=== PATIENT | male | born 1970 | race Caucasian/White ===

== ENCOUNTER 2016-08-21 14:49 | Emergency (ER) | payer OTHER ==
[~2016-08-21] VITALS: Wt 84.0 kg
[2016-08-21] MEDS ORDERED: KETOROLAC 15 MG INJ IV STA (15:48)
[2016-08-21 16:03] LABS: ADD SCAN DIFF NO
[2016-08-21 16:05] LABS: BASOPHIL # 0.1 10^3/ul (0.0-0.1); EOSINOPHILS # 0.9 10^3/ul (0.0-0.5); EOSINOPHILS % 12.6 % (0.0-7.0); HEMATOCRIT 46.9 % (42.0-52.0); HEMOGLOBIN 16.1 g/dl (14.0-18.0); LYMPHOCYTES # 2.3 10^3/ul (0.8-2.9); MEAN CORPUSCULAR HEMOGLOBIN 31.1 pg (29.0-33.0); MEAN CORPUSCULAR HGB CONC 34.3 g/dl (32.0-37.0); MEAN CORPUSCULAR VOLUME 90.5 fl (82.0-101.0); MEAN PLATELET VOLUME 10.1 fl (7.4-10.4); MONOCYTE # 0.6 10^3/ul (0.3-0.9); MONOCYTES % 8.2 % (0.0-11.0); NEUTROPHIL # 3.1 10^3/ul (1.6-7.5); NEUTROPHILS % 45.1 % (39.0-77.0); PLATELET COUNT 245 10^3/UL (140-415); RED BLOOD COUNT 5.18 10^6/ul (4.70-6.10); RED CELL DISTRIBUTION WIDTH 12.1 % (11.5-14.5); WHITE BLOOD COUNT 6.9 10^3/ul (4.8-10.8)
[2016-08-21 16:13] LABS: CHLORIDE 103 mmol/L (97-110); POTASSIUM 3.8 mmol/L (3.5-5.1); SODIUM 142 mmol/L (135-144)
[2016-08-21 16:16] LABS: ANION GAP 16 (8-16); CARBON DIOXIDE 27 mmol/L (21-31); CREATININE 0.96 mg/dl (0.61-1.24); INR 0.91; PROTIME 12.2 Sec (12.2-14.2)
[2016-08-21 16:17] LABS: BLOOD UREA NITROGEN 15 mg/dl (7-20); CALCIUM 9.7 mg/dl (8.4-10.2); GLUCOSE 102 mg/dl (70-220); PARTIAL THROMBOPLASTIN TIME 30.3 Sec (25.0-35.0)
--- NOTE | 2016-08-21 16:20 | RADRPT ---
PROCEDURE: XR Chest. CLINICAL INDICATION: Chest pain TECHNIQUE: Chest AP portable. COMPARISON: No comparison available. FINDINGS: The mediastinal structures are unremarkable. The heart is normal in size and configuration. The pu lmonary vascularity is normal. The lung ying are unremarkable. No consolidation is identified. The pleural spaces are unremarkable. The axial skeleton is unremarkable. IMPRESSION: No active intrathoracic disease. RPTAT: [facility] .Edmund Shook MD, MD Date Time Electronically viewed and signed by .Edmund Shook MD, MD on 08/21/2016 16:19 .B/
[2016-08-21 16:29] LABS: TROPONIN-I < 0.012 ng/ml (0.00-0.12)
[2016-08-21 16:43] VITALS: BP 148/98; PULSE 66; RESP 20; TEMP 98.6
--- NOTE | 2016-08-21 17:09 | ERD ---
ER Documentation Chief Complaint Date/Time DATE: 08/21/16 TIME: 17:07 Chief Complaint CHEST PAIN FOR 1 WEEK. SENT BY PMD, NO NAUSEA NO VOMITING. HPI This is a 46-year-old male who presents to the emergency room for evaluation of chest pain which is been present for 1 weeks duration. The patient localizes the chest pain to the left portion of her chest and describes as achy pain worse with movement of his left arm. The patient does state that he exercises and lifts weights daily. He denies any shortness of breath, diaphoresis, nausea or vomiting associated with this. He went to his primary care physician who sent him to the ER for further evaluation. ROS All systems reviewed and are negative except as per history of present illness. Medications Home Meds No Active Prescriptions or Reported Meds Allergies Allergies: Coded Allergies: No Known Allergy (Unverified , 08/21/16) PMhx/Soc Medical and Surgical Hx: pt denies Medical Hx, pt denies Surgical Hx Hx Alcohol Use: No Hx Substance Use: No Hx Tobacco Use: No Smoking Status: Never smoker Physical Exam Vitals Vital Signs Date Time Temp Pulse Resp B/P Pulse Ox O2 Delivery O2 Flow Rate FiO2 08/21/16 16:43 98.6 66 20 148/98 100 Room Air 08/21/16 14:51 98.6 72 20 159/85 98 Physical Exam INITIAL VITAL SIGNS: Reviewed by me GENERAL: The patient is well developed and appropriate for usual state of health in no apparent distress HEENT: Pupils equal, round, and reactive to light. EOMI. There is no scleral icterus. NECK: C-spine is soft and supple, there is no meningismus. There is no cervical lymphadenopathy. LUNGS: Clear to auscultation bilaterally. There are no rales, wheezes or rhonchi. HEART: Regular rate and rhythm, no murmurs, clicks, rubs or gallops. ABDOMEN: Soft, non-tender, non-distended. There are bowel sounds in all four quadrants. No rebound or guarding. EXTREMITIES: There is no peripheral cyanosis or edema. No focal swelling or erythema. NEUROLOGICAL: The patient moves all four extremities with 5/5 strength. Cranial nerves II - XII are intact. Normal gait. Alert and oriented SKIN: There is no apparent rash or petechiae. HEME/LYMPHATIC: There is no evidence of excessive bruising or lymphedema. PSYCHIATRIC: The patient does not appear anxious or depressed. Result Diagram: 08/21/16 1600 08/21/16 1600 Results 24 hrs Laboratory Tests Test 08/21/16 16:00 White Blood Count 6.910^3/ul Red Blood Count 5.1810^6/ul Hemoglobin 16.1g/dl Hematocrit 46.9% Mean Corpuscular Volume 90.5fl Mean Corpuscular Hemoglobin 31.1pg Mean Corpuscular Hemoglobin Concent 34.3g/dl Red Cell Distribution Width 12.1% Platelet Count 44587^3/UL Mean Platelet Volume 10.1fl Neutrophils % 45.1% Lymphocytes % 33.0% Monocytes % 8.2% Eosinophils % 12.6% Basophils % 1.0% Nucleated Red Blood Cells % 0.0/100WBC Neutrophils # 3.110^3/ul Lymphocytes # 2.310^3/ul Monocytes # 0.610^3/ul Eosinophils # 0.910^3/ul Basophils # 0.110^3/ul Nucleated Red Blood Cells # 0.010^3/ul Prothrombin Time 12.2Sec Prothrombin Time Ratio 1.0 INR International Normalized Ratio 0.91 Activated Partial Thromboplast Time 30.3Sec Sodium Level 142mmol/L Potassium Level 3.8mmol/L Chloride Level 103mmol/L Carbon Dioxide Level 27mmol/L Anion Gap 16 Blood Urea Nitrogen 15mg/dl Creatinine 0.96mg/dl Glucose Level 102mg/dl Calcium Level 9.7mg/dl Troponin I < 0.012ng/ml Current Medications Medications (Trade) Dose Ordered Sig/Jeevan Route PRN Reason Start Time Stop Time Status Last Admin Dose Admin Ketorolac Tromethamine (Toradol) 15 mg ONCE STAT IV 08/21/16 15:48 08/21/16 15:50 DC 08/21/16 16:41 Procedures/MDM EKG: #1 Rate/Rhythm: [Normal Sinus Rhythm] QRS, ST, T-waves: [No changes consistent w/ acute ischemia] Impression: [No evidence of ischemia or arrhythmia] EKG: #2 Rate/Rhythm: [Normal Sinus Rhythm] QRS, ST, T-waves: [No changes consistent w/ acute ischemia] Impression: [No evidence of ischemia or arrhythmia] Chest X-ray 1V Interpreted by me: Soft Tissue: No acute abnormalities Bones: No acute abnormalities Mediastinum/Cardiac Silhouette/Lungs: [No acute abnormalities] This 46-year-old male presents to the ER for evaluation of chest pain which is been present for 1 weeks duration and has been constant. This patient states is worse with movement of his left upper extremity. He does have a history of hyperlipidemia, and states that he was on statins for 3 months however his PCP stopped his statin. The patient denies any nausea or vomiting. EKGs were obtained both are nonischemic and showed normal sinus rhythm. Chest x-ray is clear, troponin is negative. This patient's pain is likely musculoskeletal, he will be discharged home with Naprosyn. I did advise him to follow-up with his primary care physician as an outpatient to establish outpatient stress test and he verbalized understanding Departure Diagnosis: Primary Impression: Chest pain Condition: Stable ISHAN HERNANDEZ DO Aug 21, 2016 17:09
[2016-08-21] MEDS ORDERED: NAPR-260 PO (17:10)
== END 2016-08-21 17:27 | disposition home or self-care (01) ==
LOC: E/R 14:49
DX: R07.9 Chest pain, unspecified (principal)
CPT/HCPCS: 71010; 80048; 84484; 85025; 85610; 85730; 93005; 96374; 99285; J1885